=== PATIENT | female | born 1965 | race Caucasian/White ===

== ENCOUNTER 2017-07-09 17:33 | Inpatient (IN) ==
[2017-07-09] MEDS ORDERED: 0.9 % Sodium Chloride 1,000 ML IVC ONE (18:09)
[2017-07-09] MEDS ORDERED: Ipratropium/Albuterol Neb 3 ML IH ONE (18:09)
--- NOTE | 2017-07-09 18:23 | Emergency Department Note ---
Disposition Clinical Impression: Tachycardia, Shortness of breath Pneumonia Qualifiers: Pneumonia type: due to unspecified organism Laterality: unspecified laterality Lung location: unspecified part of lung Qualified Code(s): J18.9 - Pneumonia, unspecified organism Disposition: Admitted As Inpatient Condition: Fair Referrals: NONE,PCP [Primary Care Provider] - Forms: ED Satisfaction Letter Time of Disposition: 20:19 SOB HPI - General Chief Complaint: ED Shortness of Breath/Dyspnea Stated Complaint: pneumonia Time Seen by Provider: 07/09/17 17:46 Source: patient Limitations: no limitations - History of Present Illness Patient is a 51 year old female who presented to [facility] on 07/09/17 with the chief complaint of shortness of breath. Patient states that this started approximately 2 weeks ago, during which time she was diagnosed with pneumonia. Patient reports that she was first prescribed a 7 day course of levaquin, which was ineffective. She was then prescribed a 7 day course of azithromycin, which was also ineffective. She has used both breathing treatments and an albuterol inhaler, both of which have been ineffective. She notes that she is unable to take steroids due to them causing severe hypoglycemia. She denies fever, chills , cough, or increased sputum production. Pt Subjective Complaint: shortness of breath Onset (ago): week(s) Associated symptoms: Reports: wheezing - Related Data Home Medications Medication Instructions Recorded Confirmed Albuterol Sulfate [Albuterol 0 puff IH Q4HR 07/09/17 07/09/17 Inhaler] Albuterol Sulfate [Ventolin Hfa] 18 gm IH 07/09/17 Levothyroxine [Synthroid] 150 mcg PO DAILY 07/09/17 07/09/17 Lisinopril [Zestril] 10 mg PO 07/09/17 Oxycodone HCl/Acetaminophen 1 each PO 07/09/17 [Percocet 5-325 mg Tablet] Pregabalin [Lyrica] 100 mg PO 07/09/17 Allergies Allergy/AdvReac Type Severity Reaction Status Date / Time methotrexate AdvReac See Verified 07/09/17 17:39 Comments ivp dye AdvReac See Uncoded 07/09/17 17:39 Comments steroids AdvReac See Uncoded 07/09/17 17:39 Comments Constitutional: Reports: as per HPI. Denies: fever, chills, weakness, weight change Eyes: Reports: as per HPI. Denies: eye pain, eye discharge, vision change ENT ED: Reports: as per HPI. Denies: ear pain, throat pain, dental pain, hearing loss, epistaxis, congestion, dysphagia Cardiovascular: Reports: as per HPI, dyspnea on exertion. Denies: chest pain, palpitations, edema, syncope Respiratory: Reports: as per HPI, dyspnea, wheezes. Denies: cough, hemoptysis, stridor, sputum production Gastrointestinal: Reports: as per HPI. Denies: abdominal pain, nausea, vomiting , diarrhea, constipation, hematemesis, melena, hematochezia Neurological: Reports: as per HPI. Denies: headache, weakness, numbness, paresthesias Psychiatric: Reports: as per HPI. Denies: anxiety, depression, suicidal thoughts, homicidal thoughts, auditory hallucinations, visual hallucinations Endocrine: Reports: as per HPI. Denies: fatigue Hematological/Lymphatic: Reports: as per HPI. Denies: easy bleeding, easy bruising Past Medical History - Past Medical History Medical history: Reports: cancer, COPD, CVA, diabetes, hyperlipidemia, hypertension, liver disease, osteoporosis, RA, thyroid disease, other Psychiatric history: Reports: anxiety, bipolar, depression - Social History Smoking Status: Former smoker Smokeless Tobacco Status: No Alcohol use: Reports: none Drug use: Reports: none Physical Exam - General Limitations: no limitations General appearance: alert - Head Head exam: atraumatic, normocephalic, normal inspection - Eye Eye exam: Present: normal appearance, PERRL, EOMI - ENT ENT exam: normal exam, normal oropharynx, mucous membranes moist - Neck Neck exam: Present: normal inspection, full ROM, trachea midline - Chest Chest inspection: Present: normal inspection, symmetric chest wall rise - Respiratory Respiratory exam: Present: respiratory distress, wheezes, prolonged expiratory phase. Absent: normal lung sounds bilaterally, stridor, accessory muscle use - Cardiovascular Cardiovascular exam: Present: normal rhythm, tachycardia, +S1, +S2. Absent: regular rate, bradycardia, irregular rhythm, normal heart sounds, systolic murmur, diastolic murmur, rubs, gallop - Skin Skin exam: Present: warm, dry, intact Course Course Narrative: Patient is a 51 year old female who presents with shortness of breath. Previously diagnosed with pneumonia; failed treatment with two different antibiotics. Also states that she has not had a bowel movement in approximately one week. We will place patient on O2 and order triple duoneb. Cannot order CTA for the ruleout of PE due to patient having an allergy to IV dye. May require a VQ scan at a later time. We will order CBC, BMP, EKG. - Reevaluation(s) Reevaluation #1: Labs demonstrate leukocytosis and an elevated d-dimer at 822. 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 Patient will likely require VQ scan to rule out PE. We will administer first dose of Lovenox in the ED. Will also administer vancomycin and zosyn. Spoke with hospitalist; patient will be admitted to the impatient service. Vital Signs Temperature 98.8 F 07/09/17 17:40 Pulse Rate 111 07/09/17 17:40 Respiratory Rate 28 07/09/17 17:40 Blood Pressure 121/80 07/09/17 17:40 O2 Sat by Pulse Oximetry 93 07/09/17 17:40 Temperature 99 F 07/09/17 19:45 Pulse Rate 95 07/09/17 19:45 Respiratory Rate 22 07/09/17 19:45 Blood Pressure 108/64 07/09/17 19:45 O2 Sat by Pulse Oximetry 95 07/09/17 19:45 Oxygen Delivery Oxygen Delivery Nasal Cannula Shortness of Breath/Dyspnea - Medical Records Medical records reviewed: Yes I reviewed the patient's medical records. - Lab Data Lab results reviewed: Yes I reviewed the patient's lab results. Result diagrams: 07/09/17 18:09 07/09/17 18:09 Lab Results 07/09/17 07/09/17 07/09/17 Range/Units 18:09 18:09 18:09 WBC 17.3 H (4.3-11.1) K/mcL RBC 4.30 (3.82-4.97) M/mcL Hgb 13.7 (11.5-15.4) g/dL Hct 41.6 (35.3-44.9) % MCV 96.7 (83.0-100.0) fL MCH 31.9 (28.0-33.3) pg MCHC 32.9 (31.6-35.5) g/dL RDW 15.1 H (11.5-14.5) % Plt Count 219 (140-400) K/mcL MPV 12.1 (9.4-12.4) fL Immature Gran % 0.5 (0-4) % Seg Neutrophils % 51.8 % Lymphocytes % 38.3 % Monocytes % 7.3 % Eosinophils % 1.6 % Basophils % 0.5 % Neutrophils # 9.0 H (1.6-8.9) K/mcL Lymphocytes # 6.6 H (0.6-4.6) K/mcL Monocytes # 1.3 (0.0-1.3) K/mcL Eosinophils # 0.3 (0.0-0.6) K/mcL Basophils # 0.1 (0.0-0.2) K/mcL D-Dimer (0-500) ng/mLFEU Sodium 141 (136-145) mEq/L Potassium 3.5 (3.5-5.1) mEq/L Chloride 109 H (98-107) mEq/L Carbon Dioxide 25 (23-29) mEq/L BUN 13 (6-20) mg/dL Creatinine 0.56 L (0.60-1.20) mg/dL Est GFR ( Amer) > 60 (> 60) Est GFR (Non-Af Amer) > 60 (> 60) BUN/Creatinine Ratio 23 (6-26) Glucose 117 H (70-105) mg/dL Calculated Osmolality 293 (280-300) Lactic Acid (0.5-2.2) mmol/L Calcium 8.2 L (8.6-10.3) mg/dL Troponin I < 0.03 (< 0.04) ng/mL B-Natriuretic Peptide 23 (Less than 100) pg/mL 07/09/17 07/09/17 Range/Units 18:16 19:01 WBC (4.3-11.1) K/mcL RBC (3.82-4.97) M/mcL Hgb (11.5-15.4) g/dL Hct (35.3-44.9) % MCV (83.0-100.0) fL MCH (28.0-33.3) pg MCHC (31.6-35.5) g/dL RDW (11.5-14.5) % Plt Count (140-400) K/mcL MPV (9.4-12.4) fL Immature Gran % (0-4) % Seg Neutrophils % % Lymphocytes % % Monocytes % % Eosinophils % % Basophils % % Neutrophils # (1.6-8.9) K/mcL Lymphocytes # (0.6-4.6) K/mcL Monocytes # (0.0-1.3) K/mcL Eosinophils # (0.0-0.6) K/mcL Basophils # (0.0-0.2) K/mcL D-Dimer 822 H (0-500) ng/mLFEU Sodium (136-145) mEq/L Potassium (3.5-5.1) mEq/L Chloride (98-107) mEq/L Carbon Dioxide (23-29) mEq/L BUN (6-20) mg/dL Creatinine (0.60-1.20) mg/dL Est GFR ( Amer) (> 60) Est GFR (Non-Af Amer) (> 60) BUN/Creatinine Ratio (6-26) Glucose (70-105) mg/dL Calculated Osmolality (280-300) Lactic Acid 1.1 (0.5-2.2) mmol/L Calcium (8.6-10.3) mg/dL Troponin I (< 0.04) ng/mL B-Natriuretic Peptide (Less than 100) pg/mL - Radiology Data Radiology results reviewed: Yes I reviewed the patient's radiology results. Chest X-Ray 07/09/17 18:09 IMPRESSION: 1. No acute cardiopulmonary disease. D/ / Charles Clark MD / Charles Clark MD Interpreting Provider: Charles Clark MD Abdomen/Pelvis CT 07/09/17 18:17 IMPRESSION: 1. Ground-glass density 11 mm area of consolidation in the lingula is nonspecific. A small focus of pneumonia is possible. Follow-up CT suggested in 6-12 months. 2. Otherwise no acute abnormality in the chest. 3. No acute abnormality in the abdomen or pelvis on the noncontrast CT. Mild sigmoid diverticulosis. RECOMMENDATIONS: Fleischner Society guidelines for follow-up and management of incidentally detected subsolid pulmonary nodules: Solitary ground glass nodule > than or equal to 6 mm - CT at 6-12 months to confirm persistence, then CT every 2 years until 5 years. - Low risk patients include individuals with minimal or absent history of smoking and other known risk factors. - High risk patients include individuals with a history or smoking or known risk factors. Radiology 2017 http://pubs.[facility]na.org/doi/full/10.1148/[email or web address] D/ / 07/09/2017 19:21:36 Scott Son MD / florentino Interpreting Provider: Scott Son MD Chest CT 07/09/17 18:17 IMPRESSION: 1. Ground-glass density 11 mm area of consolidation in the lingula is nonspecific. A small focus of pneumonia is possible. Follow-up CT suggested in 6-12 months. 2. Otherwise no acute abnormality in the chest. 3. No acute abnormality in the abdomen or pelvis on the noncontrast CT. Mild sigmoid diverticulosis. RECOMMENDATIONS: Fleischner Society guidelines for follow-up and management of incidentally detected subsolid pulmonary nodules: Solitary ground glass nodule > than or equal to 6 mm - CT at 6-12 months to confirm persistence, then CT every 2 years until 5 years. - Low risk patients include individuals with minimal or absent history of smoking and other known risk factors. - High risk patients include individuals with a history or smoking or known risk factors. Radiology 2017 http://pubs.rsna.org/doi/full/10.1148/[email or web address] D/ / 07/09/2017 19:21:36 Scott Son MD / florentino Interpreting Provider: Scott Son MD - EKG Data EKG attestation: Yes I reviewed and interpreted this EKG. Attestation Statement - Attestation Attestation: I, Reece Wood DO, examined this patient [id number] and my medical decision-making was reviewed with Dr. Raúl Harvey PGY-1, Resident Physician. I agree with the documented findings, disposition and treatment plan as described except to the extent set forth below. Please see my progress notes for details.
--- NOTE | 2017-07-09 18:48 | Emergency Department Note ---
Disposition Clinical Impression: Tachycardia, Shortness of breath, Pneumonia Disposition: Admitted As Inpatient Condition: Fair Referrals: NONE,PCP [Primary Care Provider] - Forms: ED Satisfaction Letter Time of Disposition: 20:13 General Adult HPI - General Chief complaint: ED Shortness of Breath/Dyspnea Stated complaint: pneumonia Time Seen by Provider: 07/09/17 17:46 Source: patient Limitations: no limitations - History of Present Illness Pain Scale: 7 - Related Data Home Medications Medication Instructions Recorded Confirmed Albuterol Sulfate [Albuterol 0 puff IH Q4HR 07/09/17 07/09/17 Inhaler] Albuterol Sulfate [Ventolin Hfa] 18 gm IH 07/09/17 Levothyroxine [Synthroid] 150 mcg PO DAILY 07/09/17 07/09/17 Lisinopril [Zestril] 10 mg PO 07/09/17 Oxycodone HCl/Acetaminophen 1 each PO 07/09/17 [Percocet 5-325 mg Tablet] Pregabalin [Lyrica] 100 mg PO 07/09/17 Allergies Allergy/AdvReac Type Severity Reaction Status Date / Time methotrexate AdvReac See Verified 07/09/17 17:39 Comments ivp dye AdvReac See Uncoded 07/09/17 17:39 Comments steroids AdvReac See Uncoded 07/09/17 17:39 Comments Past Medical History - Past Medical History Medical history: Reports: cancer, COPD, CVA, diabetes, hyperlipidemia, hypertension, liver disease, osteoporosis, RA, thyroid disease, other Psychiatric history: Reports: anxiety, bipolar, depression - Social History Smoking Status: Former smoker Smokeless Tobacco Status: No Alcohol use: Reports: none Drug use: Reports: none Physical Exam - General Limitations: no limitations General appearance: alert Course Vital Signs Temperature 98.8 F 07/09/17 17:40 Pulse Rate 111 07/09/17 17:40 Respiratory Rate 28 07/09/17 17:40 Blood Pressure 121/80 07/09/17 17:40 O2 Sat by Pulse Oximetry 93 07/09/17 17:40 Temperature 99 F 07/09/17 19:45 Pulse Rate 95 07/09/17 19:45 Respiratory Rate 22 07/09/17 19:45 Blood Pressure 108/64 07/09/17 19:45 O2 Sat by Pulse Oximetry 95 07/09/17 19:45 Oxygen Delivery Oxygen Delivery Nasal Cannula Medical Decision Making - Lab Data Result diagrams: 07/09/17 18:09 07/09/17 18:09 Lab Results 07/09/17 07/09/17 07/09/17 Range/Units 18:09 18:09 18:09 WBC 17.3 H (4.3-11.1) K/mcL RBC 4.30 (3.82-4.97) M/mcL Hgb 13.7 (11.5-15.4) g/dL Hct 41.6 (35.3-44.9) % MCV 96.7 (83.0-100.0) fL MCH 31.9 (28.0-33.3) pg MCHC 32.9 (31.6-35.5) g/dL RDW 15.1 H (11.5-14.5) % Plt Count 219 (140-400) K/mcL MPV 12.1 (9.4-12.4) fL Immature Gran % 0.5 (0-4) % Seg Neutrophils % 51.8 % Lymphocytes % 38.3 % Monocytes % 7.3 % Eosinophils % 1.6 % Basophils % 0.5 % Neutrophils # 9.0 H (1.6-8.9) K/mcL Lymphocytes # 6.6 H (0.6-4.6) K/mcL Monocytes # 1.3 (0.0-1.3) K/mcL Eosinophils # 0.3 (0.0-0.6) K/mcL Basophils # 0.1 (0.0-0.2) K/mcL D-Dimer (0-500) ng/mLFEU Sodium 141 (136-145) mEq/L Potassium 3.5 (3.5-5.1) mEq/L Chloride 109 H (98-107) mEq/L Carbon Dioxide 25 (23-29) mEq/L BUN 13 (6-20) mg/dL Creatinine 0.56 L (0.60-1.20) mg/dL Est GFR ( Amer) > 60 (> 60) Est GFR (Non-Af Amer) > 60 (> 60) BUN/Creatinine Ratio 23 (6-26) Glucose 117 H (70-105) mg/dL Calculated Osmolality 293 (280-300) Lactic Acid (0.5-2.2) mmol/L Calcium 8.2 L (8.6-10.3) mg/dL Troponin I < 0.03 (< 0.04) ng/mL B-Natriuretic Peptide 23 (Less than 100) pg/mL 07/09/17 07/09/17 Range/Units 18:16 19:01 WBC (4.3-11.1) K/mcL RBC (3.82-4.97) M/mcL Hgb (11.5-15.4) g/dL Hct (35.3-44.9) % MCV (83.0-100.0) fL MCH (28.0-33.3) pg MCHC (31.6-35.5) g/dL RDW (11.5-14.5) % Plt Count (140-400) K/mcL MPV (9.4-12.4) fL Immature Gran % (0-4) % Seg Neutrophils % % Lymphocytes % % Monocytes % % Eosinophils % % Basophils % % Neutrophils # (1.6-8.9) K/mcL Lymphocytes # (0.6-4.6) K/mcL Monocytes # (0.0-1.3) K/mcL Eosinophils # (0.0-0.6) K/mcL Basophils # (0.0-0.2) K/mcL D-Dimer 822 H (0-500) ng/mLFEU Sodium (136-145) mEq/L Potassium (3.5-5.1) mEq/L Chloride (98-107) mEq/L Carbon Dioxide (23-29) mEq/L BUN (6-20) mg/dL Creatinine (0.60-1.20) mg/dL Est GFR ( Amer) (> 60) Est GFR (Non-Af Amer) (> 60) BUN/Creatinine Ratio (6-26) Glucose (70-105) mg/dL Calculated Osmolality (280-300) Lactic Acid 1.1 (0.5-2.2) mmol/L Calcium (8.6-10.3) mg/dL Troponin I (< 0.04) ng/mL B-Natriuretic Peptide (Less than 100) pg/mL Attestation Statement - Attestation Attestation: I, Reece Wood DO, examined this patient [id number] and my medical decision-making was reviewed with Dr. Raúl Harvey PGY-1, Resident Physician. I agree with the documented findings, disposition and treatment plan as described except to the extent set forth below. Please see my progress notes for details. 51-year-old female presents emergency room with persistent shortness of breath and chest discomfort. Patient has a history of leukemia for which she quit the treatments early secondary to intolerance of the medications. Patient also has been treated twice for pneumonia over the last 2 weeks with no resolution of the symptoms. She does not typically use oxygen at home. She has a history of COPD who she has breathing treatments. Patient has taken multiple breathing treatments today without any significant symptoms here today. Currently she is denying fevers or chills nausea vomiting or diarrhea. Denies any headache vision changes. Patient denies chest pain at this point but does have what she describes as some conversational dyspnea and exertional dyspnea. Physical exam shows an obese appearing female with truncal obesity at this time. Patient is tachycardic tachypneic and hypertensive on presentation. Patient's lungs appear to be clear on the right side but have coarse wheezing on the left side. Patient's heart is regular. Abdomen is soft with slight tenderness the left upper quadrant of the abdomen over a previous surgical incision site. There is no appreciable hernia noted at this time. Patient has been having emesis at home intermittently and decreased bowel movements. She said her last regular bowel movement was over a week ago. Patient has no history of obstruction or surgical scarring causing bowel related issues. Because of the patient's IV contrast dye history with severe reaction causing cardiac arrest patient will have noncontrasted scans of the chest and abdomen. There is concern initially for pulmonary emboli, pneumonia, progression of COPD versus bowel distraction or intra-abdominal pathology this point. Patient was symptomatic control started here with breathing treatments. Steroids will be held at her request secondary to significant changes in her glucose. Patient otherwise will most likely require admission once the treatment course has been completed in the emergency room disposition is determined. See detailed documentation of the physical exam, medical intervention, medical decision-making and disposition in the resident physician's note. No critical care applied to the patient's treatment course at this time. 2000 Patient is found to have appears to be groundglass opacities in the right middle lobe of the lung. Patient otherwise is negative CT imaging of the chest and abdomen. Patient has felt better with oxygen at this time. Her troponin and BNP are normal. Does have an elevated white blood cell count neutrophilia. Patient was previously on Levaquin and azithromycin without any symptomatic control. Patient was started on and monitor the emergency room after consultation with the hospitals. Single dose of Lovenox was given secondary to inability to rule out pulmonary emboli secondary to VQ scan. Patient will be admitted for symptom control and VQ scan of the lungs to be completed secondary to the IV contrast allergy. Admission process to be completed. Hospitalist was contacted recommendations noted in the resident physician's note. Patient does feel better with the oxygen place. Vancomycin and Zosyn ordered in conjunction with conversation with the hospitals. Patient will be admitted this time for further evaluation.
[2017-07-09 19:21] LABS: Basophils # 0.1 K/mcL (0.0-0.2); Basophils % 0.5 %; Eosinophils # 0.3 K/mcL (0.0-0.6); Eosinophils % 1.6 %; Hematocrit 41.6 % (35.3-44.9); Hemoglobin 13.7 g/dL (11.5-15.4); Immature Granulocytes % 0.5 % (0-4); Lymphocytes # 6.6 K/mcL (0.6-4.6); Lymphocytes % 38.3 %; Mean Corpuscular HGB Conc 32.9 g/dL (31.6-35.5); Mean Corpuscular Hemoglobin 31.9 pg (28.0-33.3); Mean Corpuscular Volume 96.7 fL (83.0-100.0); Mean Platelet Volume 12.1 fL (9.4-12.4); Monocytes # 1.3 K/mcL (0.0-1.3); Monocytes % 7.3 %; Platelet Count 219 K/mcL (140-400); Red Cell Distribution Width 15.1 % (11.5-14.5); Segmented Neutrophils % 51.8 %
[2017-07-09 19:47] LABS: BUN/Creatinine Ratio 23 (6-26); Blood Urea Nitrogen 13 mg/dL (6-20); Calcium 8.2 mg/dL (8.6-10.3); Carbon Dioxide 25 mEq/L (23-29); Chloride 109 mEq/L (98-107); Glucose 117 mg/dL (70-105); Osmolality,Calculated 293 (280-300); Potassium 3.5 mEq/L (3.5-5.1); Sodium 141 mEq/L (136-145); Troponin I < 0.03 ng/mL (< 0.04); eGFR For African Americans > 60 (> 60); eGFR For Non-African Americans > 60 (> 60)
[2017-07-09] MEDS ORDERED: Piperacillin/Tazobactam 3.375 GM in 0.9 % Sodium Chloride Mini Bag 100 ML IVPB ONE (20:48)
[2017-07-09] MEDS ORDERED: *HR* Enoxaparin 120 MG/0.8 ML SYRINGE SQ STA (20:49)
[2017-07-09] MEDS ORDERED: Naloxone 0.4 MG/ML INJ IVP PRN (21:12)
[2017-07-09] MEDS ORDERED: Dextrose Gel 15 GM/37.5 ML TUBE PO PRN ×2 (21:14)
[2017-07-09] MEDS ORDERED: *HR* Dextrose 50 % in Water (Syg) 50 ML SYRINGE IVP PRN (21:14)
[2017-07-09] MEDS ORDERED: D5% in Water 1,000 ML IVC PRN (21:14)
[2017-07-09] MEDS ORDERED: Acetaminophen 325 MG TABLET PO PRN (21:15)
[2017-07-09] MEDS ORDERED: *HR* OxyCODONE/APAP 5/325 TABLET PO PRN (21:15)
--- NOTE | 2017-07-09 21:23 | Internal Med History&Physical ---
Date of Encounter: 07/09/17 Time of Encounter: 20:30 Internal Medicine - H&P: HPI Chief complaint: Shortness of breath Admitted From: Emergency Dept Plans for Post Hospital Care: Home History of present illness: Ms. Hancock is a 51 year old female patient with history of COPD, diabetes, hypertension who presented to the ER with complaints of shortness of breath, wheezing and fever. She has been dealing with recurrent bouts of pneumonia in the past 2-3 months. Her most recent bout started 2 weeks back when she was prescribed Levaquin followed by azithromycin. She has not felt better despite these antibiotics. She reports fever with temperature of 102, 2 days back. She has been having greenish alert sputum. No hemoptysis. She has been using bronchodilators at home with no improvement in her symptoms. Past Med Surg Social Fam HX - Past Medical History Medical history: cancer, COPD, CVA, diabetes, hyperlipidemia, hypertension, liver disease, osteoporosis, RA, thyroid disease, other Additional medical history: pneumonia. 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 fatty liver Psychiatric history: anxiety, bipolar, depression - Past Surgical History Additional surgical history: left achilles tendon repair. plastic surgery right side of face. most of large bowel removed - Social History Smoking Status: Former smoker Smokeless Tobacco Status: No Alcohol use: none Drug use: none - Additional Family History Additional family history: Reviewed and found to be noncontributory at this time Internal Medicine - H&P: Meds Albuterol Sulfate [Albuterol Inhaler] 0 puff IH Q4HR 07/09/17 [History] Albuterol Sulfate [Ventolin Hfa] 18 gm IH 07/09/17 [History] Levothyroxine [Synthroid] 150 mcg PO DAILY 07/09/17 [History] Lisinopril [Zestril] 10 mg PO 07/09/17 [History] Oxycodone HCl/Acetaminophen [Percocet 5-325 mg Tablet] 1 each PO 07/09/17 [ History] Pregabalin [Lyrica] 100 mg PO 07/09/17 [History] 3 Allergy/AdvReac Type Severity Reaction Status Date / Time methotrexate AdvReac See Verified 07/09/17 17:39 Comments ivp dye AdvReac See Uncoded 07/09/17 17:39 Comments steroids AdvReac See Uncoded 07/09/17 17:39 Comments All Systems PM: A 10-system review of systems was performed and is negative for pertinent findings except as documented above in the HPI. - Constitutional Constitutional: no chills, no fever(s), no night sweats - EENT Eyes: no change in vision, no discharge, no pain, no photophobia Ears: no ear discharge, no ear pain, no tinnitus Nose, mouth and throat: no dysphagia, no nasal discharge, no neck pain, no sore throat - Cardiovascular Cardiovascular ROS IM: no chest pain, no diaphoresis, no dyspnea, no lightheadedness, no palpitations, no syncope - Respiratory Respiratory: cough, dyspnea, wheezing, pain on inspiration, chest congestion, excessive phlegm production - Gastrointestinal Gastrointestinal: no abdominal pain, no diarrhea, no hematemesis, no hematochezia, no melena, no nausea, no vomiting - Genitourinary Genitourinary: no change in urinary stream, no dysuria, no flank pain, no hematuria - Musculoskeletal Musculoskeletal ROS IM: no numbness, no tingling - Integumentary Integumentary IM: no rash, no unusual bruising - Neurological Neurological ROS: no confusion, no convulsions, no focal weakness, no numbness, no tingling, no tremor(s) - Hematologic/Lymphatic Hematologic/Lymphatic: no easy bruising - Constitutional Vitals: Temp Pulse Resp BP Pulse Ox 98.4 F 97 22 135/85 93 07/09/17 21:05 07/09/17 21:05 07/09/17 21:05 07/09/17 21:05 07/09/17 21:05 General appearance: Present: cooperative, mild distress, A&O X 3, answers questions appropriately - Neck Neck exam general surgery: Present: supple, trachea midline. Absent: lymphadenopathy - Respiratory Respiratory exam: Present: prolonged expiratory phase, wheezes. Absent: accessory muscle use, rales, rhonchi - Cardiovascular Cardiovascular exam: Present: RRR, +S1, +S2. Absent: diastolic murmur, gallop, rubs, systolic murmur - GI/Abdominal GI/Abdominal exam: Present: normal bowel sounds, soft, no peritoneal signs. Absent: distended, tenderness - Extremities Exam Extremities exam: Present: warm, radial pulses palpable and symmetrical. Absent : calf tenderness, cyanotic, pedal edema - Neurological Exam Neurological exam: Present: CN II-XII intact, oriented X3, no focal deficits. Absent: facial droop, speech deficit - Skin Skin exam: Present: dry, intact Internal Med - H&P Results - Labs CBC & Chem 7: 07/09/17 18:09 07/09/17 18:09 - Impressions Impressions Chest X-Ray 07/09/17 18:09 IMPRESSION: 1. No acute cardiopulmonary disease. D/ / Charles Clark MD / Charles Clark MD Interpreting Provider: Charles Clark MD Abdomen/Pelvis CT 07/09/17 18:17 IMPRESSION: 1. Ground-glass density 11 mm area of consolidation in the lingula is nonspecific. A small focus of pneumonia is possible. Follow-up CT suggested in 6-12 months. 2. Otherwise no acute abnormality in the chest. 3. No acute abnormality in the abdomen or pelvis on the noncontrast CT. Mild sigmoid diverticulosis. RECOMMENDATIONS: Fleischner Society guidelines for follow-up and management of incidentally detected subsolid pulmonary nodules: Solitary ground glass nodule > than or equal to 6 mm - CT at 6-12 months to confirm persistence, then CT every 2 years until 5 years. - Low risk patients include individuals with minimal or absent history of smoking and other known risk factors. - High risk patients include individuals with a history or smoking or known risk factors. Radiology 2017 http://pubs.[facility]na.org/doi/full/[email or web address] D/ / 07/09/2017 19:21:36 Scott Son MD / florentino Interpreting Provider: Scott Son MD Chest CT 07/09/17 18:17 IMPRESSION: 1. Ground-glass density 11 mm area of consolidation in the lingula is nonspecific. A small focus of pneumonia is possible. Follow-up CT suggested in 6-12 months. 2. Otherwise no acute abnormality in the chest. 3. No acute abnormality in the abdomen or pelvis on the noncontrast CT. Mild sigmoid diverticulosis. RECOMMENDATIONS: Fleischner Society guidelines for follow-up and management of incidentally detected subsolid pulmonary nodules: Solitary ground glass nodule > than or equal to 6 mm - CT at 6-12 months to confirm persistence, then CT every 2 years until 5 years. - Low risk patients include individuals with minimal or absent history of smoking and other known risk factors. - High risk patients include individuals with a history or smoking or known risk factors. Radiology 2017 http://pubs.[facility]na.org/doi/full/[email or web address] D/ / 07/09/2017 19:21:36 Scott Son MD / florentino Interpreting Provider: Scott Son MD - Assessment and plan (1) Pneumonia Current Visit: Yes Status: Suspected Assessment and plan: Patient with recurrent bouts of pneumonia. Has completed outpatient antibiotic treatment but did have fever and has leukocytosis currently. No recent steroid use. CT of the chest does show lingular infiltrate. We will continue broad- spectrum antibiotics. Check pro-calcitonin. Sputum for Gram stain and culture. Check blood cultures. Urine streptococcus and Legionella antigens. High risk for complications. Qualifiers: Pneumonia type: due to methicillin-resistant Staphylococcus aureus (MRSA) Laterality: unspecified laterality Lung location: unspecified part of lung Qualified Code(s): J15.212 - Pneumonia due to Methicillin resistant Staphylococcus aureus (2) COPD exacerbation Current Visit: Yes Status: Acute Assessment and plan: Patient appears to be having COPD exacerbation with bilateral wheezing. Due to underlying pneumonia. Will treat with bronchodilators, steroids. O2 supplementation as needed. Treat underlying pneumonia. (3) Hypertension Current Visit: Yes Status: Chronic Assessment and plan: Currently controlled. Continue lisinopril Qualifiers: Hypertension type: essential hypertension Qualified Code(s): I10 - Essential (primary) hypertension (4) Diabetes mellitus, type 2 Current Visit: Yes Status: Chronic Assessment and plan: Patient reports that her blood sugars go up high when she is on steroids. We will place her on sliding scale insulin coverage and diabetic diet for now. Monitor blood sugars closely. Qualifiers: Diabetes mellitus usp insulin use: without terminal clerk use Diabetes mellitus complication status: with hyperglycemia Qualified Code(s): E11.65 - Type 2 diabetes mellitus with hyperglycemia (5) Elevated d-dimer Current Visit: Yes Status: Acute Assessment and plan: Patient has elevated d-dimer. While this could be concerning for PE, this could also be related to her pneumonia. For now given that her respiratory distress can be explained by COPD exacerbation and pneumonia, will hold off on further anticoagulation. We will get VQ scan. We will place her on subcutaneous heparin for DVT prophylaxis. - Time Spent With Patient Total time spent is greater than 50% in coordination of care (as documented) at patient's floor/unit and/or counseling patient:
[2017-07-09] MEDS ORDERED: Vancomycin 0 MG in 0.9 % Sodium Chloride 250 ML IVPB SCH (22:00)
[2017-07-10] MEDS: Ipratropium/Albuterol Neb 3 ML IH SCH ×7 (00:30→23:15)
[2017-07-10] MEDS: methylPREDNISolone 125 MG/2 ML VIAL IVP SCH ×4 (02:28→23:15)
[2017-07-10] MEDS: Doxycycline 100 MG in 0.9 % Sodium Chloride Mini Bag 100 ML IVPB SCH ×2 (05:30→22:11)
[2017-07-10] MEDS: *HR* Heparin 5,000 UNIT/ML VIAL SQ SCH ×2 (05:31→16:27)
[2017-07-10 07:13] LABS: Estimated Average Glucose 131 mg/dl; Hemoglobin A1C 6.2 %
--- NOTE | 2017-07-10 08:43 | Internal Med Progress Note ---
<Brandon Murphy - Last Filed: 07/10/17 10:15> Date of Encounter: 07/10/17 Time of Encounter: 08:43 - Assessment and plan (1) Pneumonia Current Visit: Yes Status: Suspected Assessment and plan: Recurrent CAP CXR negative for acute findings. CT abd/pelvis revealed ground glass density 11mm consolidation in lingula, small focus of pneumonia possible, and mild sigmoid diverticulosis. No recorded fevers, but does have leukocytosis of 17.3. Reported problems with swallow, issues with epiglottis not closing per patient. -Continue with broad spectrum Zosyn and Vancomycin d2. -Urine strep and legionella ordered -Sputum culture and gram stain ordered -Blood cultures ordered -Continue with solumedrol; however, patient has been refusing despite counseling due to it causing elevated sugars in the past which she describes as an allergy. -Speech therapy evaluation of swallow and modified barium swallow study. Recommended NPO, but patient decided to get food and eat anyways. -Transfer patient to any non tele bed. Qualifiers: Pneumonia type: due to methicillin-resistant Staphylococcus aureus (MRSA) Laterality: unspecified laterality Lung location: unspecified part of lung Qualified Code(s): J15.212 - Pneumonia due to Methicillin resistant Staphylococcus aureus (2) COPD exacerbation Current Visit: Yes Status: Acute Assessment and plan: Possible exacerbation of COPD due to pneumonia. -Continue with bronchodilators and supplemental O2 as needed. -Continue with solumedrol; however, patient has been refusing despite counseling due to it causing elevated sugars in the past which she describes as an allergy. (3) Hypertension Current Visit: Yes Status: Chronic Assessment and plan: Continue home meds for chronic disease management. Qualifiers: Hypertension type: essential hypertension Qualified Code(s): I10 - Essential (primary) hypertension (4) Diabetes mellitus, type 2 Current Visit: Yes Status: Chronic Assessment and plan: Patient reports that her blood sugars go up high when she is on steroids. We will place her on sliding scale insulin coverage and diabetic diet for now. Monitor blood sugars closely. Qualifiers: Diabetes mellitus senior living insulin use: without senior living use Diabetes mellitus complication status: with hyperglycemia Qualified Code(s): E11.65 - Type 2 diabetes mellitus with hyperglycemia (5) Elevated d-dimer Current Visit: Yes Status: Acute Assessment and plan: Patient has elevated d-dimer. Likely due to pneumonia vs COPD exacerbation V/Q scan completed revealing low probability of pulmonary embolism. - Time Spent With Patient Total time spent is greater than 50% in coordination of care (as documented) at patient's floor/unit and/or counseling patient: - Subjective Interval history: Ms. Hancock is a 51 year old female with history of COPD, hx of CVA as a child, dm, htn, thyroid disease, hyperlipidemia who presented with complaintof shortness of breath, wheezing, and fever up to 102F and green sputum. Patient reports she has recurrent pneumonia that isn't resolving despite multiple rounds of antbiotics. She does report that she has swallow abnormalities where her epiglotis doesn't close fully. As a result, I would like to complete a speech consult and barium swallow before eating meal, but patient said she will eat regardless and sent family member to cafeteria to bring her food. Patient also refuses steroids during the admission because it causes her sugars to elevate and she doesn't want to get the resulting insulin shots. Patient also refusing to keep monitor on. After reviewing the case and obtaining V/Q results , the patient likely does not need tele, so will transfer. Patient also refuses to attempt again at getting labwork after two failed tries from building tech. Patient this morning continues to have shortness of breath and cough. Denies fevers, chills, sweats, headaches, nausea, vomiting, chest pain, palpitations, abdominal pain, changes in bowels or bladder, weakness, loss of sensation, or rash. - Constitutional Vitals: Temp Pulse Resp BP Pulse Ox 98.5 F 88 18 142/72 97 07/10/17 07:16 07/10/17 07:16 07/10/17 05:00 07/10/17 07:16 07/10/17 05:00 General appearance: Present: A&O X 3, no acute distress, obese, answers questions appropriately - Head Head exam: Present: atraumatic, normal inspection, normocephalic - Eye Eye exam: Present: EOMI, normal appearance - ENT ENT exam: Present: mucous membranes moist, normal exam - Neck Neck exam general surgery: Present: full ROM, normal inspection, supple, trachea midline. Absent: lymphadenopathy - Respiratory Respiratory exam: Present: prolonged expiratory phase, wheezes (expiratory wheezing throughout). Absent: rales, respiratory distress, rhonchi - Cardiovascular Cardiovascular exam: Present: RRR, +S1, +S2 - GI/Abdominal GI/Abdominal exam: Present: normal bowel sounds, soft. Absent: distended, tenderness - Extremities Exam Extremities exam: Present: full ROM, normal inspection, warm, radial pulses palpable and symmetrical. Absent: pedal edema - Neurological Exam Neurological exam: Present: alert, oriented X3, no focal deficits, strengths equal and symetr throughout. Absent: facial droop, speech deficit - Skin Skin exam: Present: dry, intact, normal color, warm. Absent: rash Internal Medicine: Result - Labs CBC & Chem 7: 07/09/17 18:09 07/09/17 18:09 - ABG Interpretation ABG results: PT/INR, D-dimer D-Dimer 822 ng/mLFEU (0-500) H 07/09/17 18:16 Consult Discharge Plan - Plan Referrals: NONE,PCP [Primary Care Provider] - <Wilfrid Pope - Last Filed: 07/10/17 17:24> Date of Encounter: 07/10/17 - Assessment and plan (1) Pneumonia Current Visit: Yes Status: Suspected Qualifiers: Pneumonia type: due to other aerobic Gram-negative bacteria Laterality: left Lung location: lower lobe of lung Qualified Code(s): J15.6 - Pneumonia due to other Gram-negative bacteria (2) COPD exacerbation Current Visit: Yes Status: Acute (3) Hypertension Current Visit: Yes Status: Chronic Qualifiers: Hypertension type: essential hypertension Qualified Code(s): I10 - Essential (primary) hypertension (4) Diabetes mellitus, type 2 Current Visit: Yes Status: Chronic Qualifiers: 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 - Time Spent With Patient Total time spent is greater than 50% in coordination of care (as documented) at patient's floor/unit and/or counseling patient: - Constitutional Vitals: Temp Pulse Resp BP Pulse Ox 98.4 F 94 17 135/78 95 07/10/17 15:40 07/10/17 15:40 07/10/17 15:40 07/10/17 15:40 07/10/17 15:40 Internal Medicine: Result - Labs CBC & Chem 7: 07/09/17 18:09 07/09/17 18:09 - ABG Interpretation ABG results: PT/INR, D-dimer D-Dimer 822 ng/mLFEU (0-500) H 07/09/17 18:16 - Impressions Impressions Pulmonary Perfusion Imaging 07/09/17 21:13 IMPRESSION: Low probability for pulmonary embolus. D/ / Nisha Marques MD / Nisha Marques MD Interpreting Provider: Nisha Marques MD - Attending Attestation I examined this patient and my medical decision-making was reviewed with the Resident Physician on 07/10/17. I agree with the documented findings, disposition and treatment plan as described except to the extent set forth below. Ms Hancock is currently admitted with persistent pneumonia which has failed outpatient treatment. She remains moderate to high risk due to potential for worsening clinical status. Ms Hancock has taken off her own tele. She is saying she will refuse more IV abx if in saline as the "salt is causing me to retain water and gain weight." She now has agreed to abx. She was told if she wanted a shower that she should do it before she is hooked up to her IV abx and she said no. After abx started she disconnected herself and is going in the shower. She was complaining of issues in her throat but when told she should have a swallow eval she refused to be NPO. MBS ordered (but we anticipate she will refuse or will not be NPO for it). She also has her own MDI at bedside and refuses to have it removed and not use it despite being told that she cannot. Exam alert Comfortable in bed Mucus membranes dry Heart reg No wheeze I/P 1. Lingular pneumonia 2. Noncompliance with current hospital treatment. Further diagnoses and plan as above.
[2017-07-10] MEDS: Piperacillin/Tazobactam 3.375 GM in 0.9 % Sodium Chloride Mini Bag 100 ML IVPB SCH ×2 (08:52→16:28)
[2017-07-10] MEDS ORDERED: Aminoglycoside Consult 1 EACH MC ONE (09:14)
[2017-07-10] MEDS: Insulin LISPRO 300 UNITS/3 ML VIAL SQ SCH ×3 (11:13→18:53)
[2017-07-10] MEDS ORDERED: Insulin LISPRO 300 UNITS/3 ML VIAL SQ SCH (21:00)
[2017-07-11] MEDS: Piperacillin/Tazobactam 3.375 GM in 0.9 % Sodium Chloride Mini Bag 100 ML IVPB SCH ×3 (00:25→18:20)
[2017-07-11] MEDS: Ipratropium/Albuterol Neb 3 ML IH SCH ×6 (03:27→23:27)
[2017-07-11] MEDS ORDERED: Mag Hydrox/Al Hydrox/Simeth 30 ML UDC PO ONE (03:34)
[2017-07-11 05:01] LABS: Basophils % 0.5 %; Eosinophils % 3.2 %; Hematocrit 42.5 % (35.3-44.9); Hemoglobin 13.9 g/dL (11.5-15.4); Immature Granulocytes % 0.4 % (0-4); Lymphocytes % 39.6 %; Mean Corpuscular HGB Conc 32.7 g/dL (31.6-35.5); Mean Corpuscular Hemoglobin 30.3 pg (28.0-33.3); Mean Corpuscular Volume 92.8 fL (83.0-100.0); Mean Platelet Volume 11.8 fL (9.4-12.4); Monocytes % 8.2 %; Platelet Count 317 K/mcL (140-400); Red Blood Count 4.58 M/mcL (3.82-4.97); Segmented Neutrophils % 48.1 %
[2017-07-11 05:02] LABS: Basophils # 0.1 K/mcL (0.0-0.2); Eosinophils # 0.5 K/mcL (0.0-0.6); Lymphocytes # 5.6 K/mcL (0.6-4.6); Monocytes # 1.2 K/mcL (0.0-1.3); Neutrophils # 6.8 K/mcL (1.6-8.9)
[2017-07-11 05:11] LABS: BUN/Creatinine Ratio 14 (6-26); Blood Urea Nitrogen 8 mg/dL (6-20); Calcium 8.7 mg/dL (8.6-10.3); Carbon Dioxide 28 mEq/L (23-29); Chloride 108 mEq/L (98-107); Glucose 143 mg/dL (70-105); Osmolality,Calculated 295 (280-300); Potassium 3.7 mEq/L (3.5-5.1); Sodium 142 mEq/L (136-145); eGFR For African Americans > 60 (> 60); eGFR For Non-African Americans > 60 (> 60)
[2017-07-11] MEDS: *HR* Heparin 5,000 UNIT/ML VIAL SQ SCH (06:08)
[2017-07-11] MEDS: Doxycycline 100 MG in 0.9 % Sodium Chloride Mini Bag 100 ML IVPB SCH (06:08)
[2017-07-11] MEDS: Insulin LISPRO 300 UNITS/3 ML VIAL SQ SCH (09:09)
[2017-07-11] MEDS: methylPREDNISolone 125 MG/2 ML VIAL IVP SCH ×3 (09:09→21:15)
--- NOTE | 2017-07-11 10:26 | Internal Med Progress Note ---
<Royce Pederson - Last Filed: 07/11/17 15:15> Date of Encounter: 07/11/17 Time of Encounter: 09:00 - Assessment and plan (1) Pneumonia Current Visit: Yes Status: Suspected Assessment and plan: Recurrent CAP CXR negative for acute findings. CT abd/pelvis revealed ground glass density 11mm consolidation in lingula, small focus of pneumonia possible, and mild sigmoid diverticulosis. Leukocytosis improving (17.3->14). -Currently on broad spectrum Zosyn, Doxycycline, and Vancomycin d2. Patient refusing having back to back IV antibiotics. Discontinuing Vanco. Switching Doxy to oral. -Urine strep and legionella ordered -Sputum culture and gram stain ordered -Blood cultures ordered-prelim negative -Continue with solumedrol. Qualifiers: Pneumonia type: due to other aerobic Gram-negative bacteria Laterality: left Lung location: lower lobe of lung Qualified Code(s): J15.6 - Pneumonia due to other Gram-negative bacteria (2) COPD exacerbation Current Visit: Yes Status: Acute Assessment and plan: Possible exacerbation of COPD due to pneumonia. -Continue with bronchodilators and supplemental O2 as needed. -Continue with solumedrol. (3) Hypertension Current Visit: Yes Status: Chronic Assessment and plan: Continue home meds for chronic disease management. Qualifiers: Hypertension type: essential hypertension Qualified Code(s): I10 - Essential (primary) hypertension (4) Diabetes mellitus, type 2 Current Visit: Yes Status: Chronic Assessment and plan: Patient reports that her blood sugars go up high when she is on steroids. We will place her on sliding scale insulin coverage and diabetic diet for now. Monitor blood sugars closely. Qualifiers: Diabetes mellitus sales and service advisor insulin use: without nursing home use Diabetes mellitus complication status: with hyperglycemia Qualified Code(s): E11.65 - Type 2 diabetes mellitus with hyperglycemia (5) Medical non-compliance Current Visit: Yes Status: Acute Assessment and plan: Pt is noncompliant with her current treatment in the hospital. - Time Spent With Patient Total time spent is greater than 50% in coordination of care (as documented) at patient's floor/unit and/or counseling patient: - Subjective Interval history: Patient seen and examined cuddled up in bed with significant other. No acute distress. Patient states that she is taking 4 antibiotics and they are causing burning across her abdomen. She states that she is receiving too much sodium causing swelling (none on exam). She notes her breathing has not improved and that she is coughing mucus up. - Constitutional Vitals: Temp Pulse Resp BP Pulse Ox 98.2 F 100 18 122/83 93 07/11/17 06:32 07/11/17 06:32 07/11/17 06:32 07/11/17 06:32 07/11/17 07:51 General appearance: Present: cooperative, A&O X 3, no acute distress, obese, answers questions appropriately - Head Head exam: Present: atraumatic, normal inspection, normocephalic - Eye Eye exam: Present: EOMI, normal appearance, conjuntiva pink, sclera anicteric - ENT ENT exam: Present: mucous membranes moist - Neck Neck exam general surgery: Present: full ROM, normal inspection - Respiratory Respiratory exam: Present: prolonged expiratory phase, wheezes (expiratory throughout). Absent: respiratory distress, rhonchi - Cardiovascular Cardiovascular exam: Present: RRR, +S1, +S2 - GI/Abdominal GI/Abdominal exam: Present: normal bowel sounds. Absent: guarding, tenderness - Extremities Exam Extremities exam: Present: warm. Absent: cyanotic, pedal edema, tenderness - Neurological Exam Neurological exam: Present: alert, oriented X3, no focal deficits. Absent: facial droop, speech deficit - Psychiatric Psychiatric exam: Present: agitated - Skin Skin exam: Present: dry, intact, warm. Absent: rash Internal Medicine: Result - Labs CBC & Chem 7: 07/11/17 04:39 07/11/17 04:39 Labs: Short CBC 07/11/17 Range/Units 04:39 WBC 14.1 H (4.3-11.1) K/mcL Hgb 13.9 (11.5-15.4) g/dL Hct 42.5 (35.3-44.9) % Plt Count 317 (140-400) K/mcL Neutrophils # 6.8 (1.6-8.9) K/mcL BMP 07/11/17 04:39 Sodium 142 Potassium 3.7 Chloride 108 H Carbon Dioxide 28 BUN 8 Creatinine 0.57 L Glucose 143 H Calcium 8.7 - ABG Interpretation ABG results: PT/INR, D-dimer D-Dimer 822 ng/mLFEU (0-500) H 07/09/17 18:16 Consult Discharge Plan - Plan Referrals: NONE,PCP [Primary Care Provider] - <NikoWilfrid Wolf - Last Filed: 07/11/17 18:50> Date of Encounter: 07/11/17 - Assessment and plan (1) Pneumonia Current Visit: Yes Status: Suspected Qualifiers: Pneumonia type: due to other aerobic Gram-negative bacteria Laterality: left Lung location: lower lobe of lung Qualified Code(s): J15.6 - Pneumonia due to other Gram-negative bacteria (2) COPD exacerbation Current Visit: Yes Status: Acute (3) Hypertension Current Visit: Yes Status: Chronic Qualifiers: Hypertension type: essential hypertension Qualified Code(s): I10 - Essential (primary) hypertension (4) Diabetes mellitus, type 2 Current Visit: Yes Status: Chronic Qualifiers: Diabetes mellitus nursing home insulin use: without sales and service advisor use Diabetes mellitus complication status: with hyperglycemia Qualified Code(s): E11.65 - Type 2 diabetes mellitus with hyperglycemia (5) Medical non-compliance Current Visit: Yes Status: Acute - Time Spent With Patient Total time spent is greater than 50% in coordination of care (as documented) at patient's floor/unit and/or counseling patient: - Constitutional Vitals: Temp Pulse Resp BP Pulse Ox 98.8 F 95 18 141/82 95 07/11/17 16:15 07/11/17 16:15 07/11/17 16:15 07/11/17 16:15 07/11/17 16:15 Internal Medicine: Result - Labs CBC & Chem 7: 07/11/17 04:39 07/11/17 04:39 Labs: Short CBC 07/11/17 Range/Units 04:39 WBC 14.1 H (4.3-11.1) K/mcL Hgb 13.9 (11.5-15.4) g/dL Hct 42.5 (35.3-44.9) % Plt Count 317 (140-400) K/mcL Neutrophils # 6.8 (1.6-8.9) K/mcL BMP 07/11/17 04:39 Sodium 142 Potassium 3.7 Chloride 108 H Carbon Dioxide 28 BUN 8 Creatinine 0.57 L Glucose 143 H Calcium 8.7 - ABG Interpretation ABG results: PT/INR, D-dimer D-Dimer 822 ng/mLFEU (0-500) H 07/09/17 18:16 - Impressions Impressions Videofluoroscopic Swallow 07/11/17 08:00 IMPRESSION: No laryngeal penetration or aspiration demonstrated. Please see separate speech pathology report for full discussion of findings and recommendations. D/ / Antonio Vega MD / Antonio Vega MD Interpreting Provider: Antonio Vega MD - Attending Attestation I examined this patient and my medical decision-making was reviewed with the Resident Physician on 07/11/17. I agree with the documented findings, disposition and treatment plan as described except to the extent set forth below. Ms Hancock is currently admitted for pneumonia. She remains moderate risk at this time. Ms Hancock is doing OK. She is concerned about the IV abx and fluid gain. Still with some cough. Wheezing but agreed to take steroid today. Exam Alert Comfortable Wheeze present Heart not tachy No edema noted I/P 1. Lingular PNA 2. HTN Further diagnoses and plan as above. Change to PO doxy and d/c Vanc.
[2017-07-11] MEDS ORDERED: Acetaminophen 325 MG TABLET PO PRN (12:28)
[2017-07-11] MEDS ORDERED: *HR* OxyCODONE/APAP 5/325 TABLET PO PRN (12:28)
[2017-07-11] MEDS ORDERED: Naloxone 0.4 MG/ML INJ IVP PRN (12:28)
[2017-07-11] MEDS ORDERED: Dextrose Gel 15 GM/37.5 ML TUBE PO PRN ×2 (12:28)
[2017-07-11] MEDS ORDERED: *HR* Dextrose 50 % in Water (Syg) 50 ML SYRINGE IVP PRN (12:28)
[2017-07-11] MEDS ORDERED: D5% in Water 1,000 ML IVC PRN (12:28)
[2017-07-11] MEDS ORDERED: Insulin LISPRO 300 UNITS/3 ML VIAL SQ SCH ×2 (16:30→21:00)
[2017-07-11] MEDS ORDERED: Doxycycline 100 MG in 0.9 % Sodium Chloride Mini Bag 100 ML IVPB SCH (18:00)
[2017-07-11] MEDS ORDERED: *HR* Heparin 5,000 UNIT/ML VIAL SQ SCH (18:00)
[2017-07-11] MEDS ORDERED: Doxycycline 100 MG CAPSULE PO SCH (21:00)
[2017-07-11] MEDS: ALPRAZolam 1 MG TABLET PO SCH (21:14)
[2017-07-12] MEDS: Piperacillin/Tazobactam 3.375 GM in 0.9 % Sodium Chloride Mini Bag 100 ML IVPB SCH (01:18)
[2017-07-12] MEDS: Ipratropium/Albuterol Neb 3 ML IH SCH ×2 (03:30→07:43)
[2017-07-12] MEDS ORDERED: Mag Hydrox/Al Hydrox/Simeth 30 ML UDC PO PRN (04:08)
[2017-07-12] MEDS: methylPREDNISolone 125 MG/2 ML VIAL IVP SCH (04:46)
[2017-07-12] MEDS: ALPRAZolam 1 MG TABLET PO SCH (05:52)
[2017-07-12 07:04] VITALS: BP 140/97
--- NOTE | 2017-07-12 10:14 | Discharge Summary ---
<Royce Pederson - Last Filed: 07/12/17 10:59> - NOTES TO OUTPATIENT PROVIDER Notes to Outpatient Provider: Abnormal chest CT, recommending repeat in 6-12 months. Patient requested insulin Rx while she is on steroids. Orders not resulted at time of discharge: Pending orders 07/09/17 21:13 Culture,Sputum with Gram Stain [RM] Routine Procalcitonin Routine 07/09/17 21:18 Legionella Antigen [RM] Stat S. Pneumoniae Antigen [RM] Stat 07/09/17 22:04 Culture,Blood [BC] Routine 07/13/17 04:00 BMP [Basic Metabolic Panel] AM 0400 Complete Blood Count [HEME] AM 0400 Date of Encounter: 07/12/17 Time of Encounter: 08:35 - Discharge Diagnosis (1) Pneumonia Priority: Primary Status: Suspected Qualifiers: Pneumonia type: due to other aerobic Gram-negative bacteria Laterality: left Lung location: lower lobe of lung Qualified Code(s): J15.6 - Pneumonia due to other Gram-negative bacteria (2) COPD exacerbation Priority: Secondary Status: Acute (3) Hypertension Priority: Secondary Status: Chronic Qualifiers: Hypertension type: essential hypertension Qualified Code(s): I10 - Essential (primary) hypertension (4) Diabetes mellitus, type 2 Priority: Secondary Status: Chronic Qualifiers: Diabetes mellitus chcf insulin use: without chcf use Diabetes mellitus complication status: with hyperglycemia Qualified Code(s): E11.65 - Type 2 diabetes mellitus with hyperglycemia (5) Medical non-compliance Priority: Secondary Status: Acute Hospital course: Ms. Hancock is a 51 year old female with history of COPD, diabetes, hypertension who presented to the ER with complaints of shortness of breath, wheezing and fever. History of recurrent bouts of pneumonia in the past 2-3 months. Most recently 2 weeks back-was prescribed Levaquin followed by azithromycin. She had not felt better, reporting fever of 102F. CT chest showing: Ground-glass density 11 mm area of consolidation in the lingula is nonspecific. A small focus of pneumonia is possible. Follow-up CT suggested in 6-12 months. Patient admitted for pneumonia with AECOPD, started on doxycycline, vancomycin, and zosyn, along with aerosol treatments and IV steroids. Patient initially requiring supplement oxygen via nasal cannula, prior to discharge O2 saturation stable on room air and patient notes breathing improved. Patient has no history of diabetes, but requested insulin coverage for elevated blood glucose levels while on steroids. She was noncompliant with inpatient treatment, refusing medications (antibiotics and steroids) multiple times and discontinue IV antibiotics herself. Vancomycin discontinues and antibiotic coverage transition to PO Doxycycline and Augmentin at discharge with 5 day course of PO steroids. Patient stated she needed insulin coverage while on steroids for elevated BG, plan to send humalog pen with low dose sliding scale to only be used as needed while on steroids. Discharge discussed with: patient, nurse - Time Spent with Patient Total time spent providing and/or coordinating discharge services: Greater than 30 minutes (45mins) - Discharge Medications Prescriptions: Amoxicillin/Clavulanate [Augmentin] 875 mg PO BIDWM 5 Days #10 tablet Doxycycline 100 mg PO BID 5 Days #10 capsule Insulin LISPRO [Humalog Kwikpen U-100] See Protocol SQ BID #1 pack predniSONE [PredniSONE] 40 mg PO DAILY 5 Days #10 tablet Home Medications: Albuterol Sulfate [Ventolin Hfa] 2 puff IH Q4H PRN 07/09/17 [History] Lisinopril [Zestril] 10 mg PO DAILY 07/09/17 [History] Pregabalin [Lyrica] 100 mg PO TID 07/09/17 [History] Alprazolam [Xanax] 2 mg PO TID 07/11/17 [History] Citalopram Hydrobromide [Celexa] 40 mg PO DAILY 07/11/17 [History] Fluticasone Propionate Nasal [Flonase] 1 spr NS BID 07/11/17 [History] Ipratropium/Albuterol Neb [Duoneb] 3 ml IH Q6HR PRN 07/11/17 [History] Potassium Chloride [K-Tab ER] 20 meq PO DAILY 07/11/17 [History] Ranitidine HCl [Acid Food Service Supervisor] 150 mg PO DAILY 07/11/17 [History] Amoxicillin/Clavulanate [Augmentin] 875 mg PO BIDWM 5 Days #10 tablet 07/12/17 [ Rx] Doxycycline 100 mg PO BID 5 Days #10 capsule 07/12/17 [Rx] Insulin LISPRO [Humalog Kwikpen U-100] See Protocol SQ BID #1 pack 07/12/17 [Rx] Levothyroxine [Synthroid] 150 mcg PO 0630 tablet 07/12/17 [Rx] predniSONE [PredniSONE] 40 mg PO DAILY 5 Days #10 tablet 07/12/17 [Rx] Allergies/Adverse Reactions: 3 Allergy/AdvReac Type Severity Reaction Status Date / Time methotrexate AdvReac See Verified 07/09/17 17:39 Comments ivp dye AdvReac See Uncoded 07/09/17 17:39 Comments steroids AdvReac See Uncoded 07/09/17 17:39 Comments Date of admission: 07/09/17 20:59 Primary care physician: PCP NONE Consults: 07/10/17 08:53 Consult to Speech Therapy [CONS] Routine Comment: Evaluate, develop and implement POC Reason for Consult: Concern for abnormal swallow based on history. Reports epiglottis doesn't close fully. Recurrent pneumonia. Time Notified: 08:54 Call Completed: No Discharging clinician: Wilfrid Pope Anticipated date of discharge: 07/12/17 - Constitutional Vitals: Temp Pulse Resp BP Pulse Ox 98.6 F 108 16 140/97 97 07/12/17 07:01 07/12/17 07:01 07/12/17 07:43 07/12/17 07:01 07/12/17 07:43 General appearance: Present: cooperative, A&O X 3, no acute distress, obese, answers questions appropriately - Head Head exam: Present: atraumatic, normal inspection, normocephalic - Eye Eye exam: Present: EOMI, sclera anicteric - ENT ENT exam: Present: mucous membranes moist - Neck Neck exam general surgery: Present: full ROM - Respiratory Respiratory exam: Present: wheezes (expiratory throughout) - Cardiovascular Cardiovascular exam: Present: RRR, +S1, +S2 - GI/Abdominal GI/Abdominal exam: Present: normal bowel sounds, soft. Absent: tenderness - Extremities Exam Extremities exam: Present: warm. Absent: cyanotic, pedal edema, tenderness - Neurological Exam Neurological exam: Present: alert, oriented X3, no focal deficits. Absent: facial droop, speech deficit - Skin Skin exam: Present: intact, normal color, warm. Absent: rash - Patient Status Disposition: Home, Self-Care Condition: Fair Functional capacity at discharge: independent ambulation Overall status at discharge: patient is back to baseline - Discharge Instructions Follow Up With: Loree Baker LYE PEEL OPERATOR [Advanced Practice Nurse] - 07/20/17 9:30 am Additional Instructions: Please complete your antibiotic course of doxycycline and augmentin for the next 5 days. Please complete your 5 day steroid course. Scaling scale insulin written to be taken as needed with the steroids for elevated blood sugar. Please follow up with you primary care physician within the week. Return or seek medical care if new or worsening symptoms such as chest pain, shortness of breath, dizziness, confusion. - Diet and Activity Activity: increase activity as tolerated Diet: advance to your usual diet <Wilfrid Pope - Last Filed: 07/12/17 18:44> Orders not resulted at time of discharge: Pending orders 07/09/17 22:04 Culture,Blood [BC] Routine Date of Encounter: 07/12/17 - Discharge Diagnosis (1) Pneumonia Status: Resolved Qualifiers: Pneumonia type: due to other aerobic Gram-negative bacteria Laterality: left Lung location: lower lobe of lung Qualified Code(s): J15.6 - Pneumonia due to other Gram-negative bacteria (2) COPD exacerbation Status: Resolved (3) Hypertension Status: Chronic Qualifiers: Hypertension type: essential hypertension Qualified Code(s): I10 - Essential (primary) hypertension (4) Diabetes mellitus, type 2 Status: Chronic Qualifiers: Diabetes mellitus manager terminal insulin use: without chcf use Diabetes mellitus complication status: with hyperglycemia Qualified Code(s): E11.65 - Type 2 diabetes mellitus with hyperglycemia (5) Medical non-compliance Status: Chronic Hospital course: Ms. Hancock is a 51 year old female - Time Spent with Patient Total time spent providing and/or coordinating discharge services: 39min Date of admission: 07/09/17 20:59 Primary care physician: PCP NONE Consults: 07/10/17 08:53 Consult to Speech Therapy [CONS] Routine Comment: Evaluate, develop and implement POC Reason for Consult: Concern for abnormal swallow based on history. Reports epiglottis doesn't close fully. Recurrent pneumonia. Time Notified: 08:54 Call Completed: No - Constitutional Vitals: Temp Pulse Resp BP Pulse Ox 98.6 F 108 16 140/97 97 07/12/17 07:01 07/12/17 07:01 07/12/17 07:43 07/12/17 07:01 07/12/17 07:43 - Attending Attestation I examined this patient and my medical decision-making was reviewed with the Resident Physician on 07/12/17. I agree with the documented findings, disposition and treatment plan as described except to the extent set forth below. Ms Hancock has been admitted for acute pneumonia. She has responded to abx. She is currently afebrile and ready for discharge home. Exam alert Comfortable Mucus membranes dry Heart reg No wheeze Plan D/C home today. Encouraged patient to complete abx and follow up with PCP. Need follow up CT
[2017-07-12] MEDS ORDERED: predniSONE 20 MG TABLET PO STA (10:21)
--- NOTE | 2017-07-12 16:46 | Electrocardiograph Report ---
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
== END 2017-07-12 11:14 | disposition home or self-care (01) | DRG 137 ==
LOC: EMEROO 17:33 → 2NENU 17:33 → SUATTDRO 20:59 → 2NENU 22:11
PROVIDERS: ADMIT Internal Medicine; ATTEND Internal Medicine